=== PATIENT | male | born 1960 | race African-American/Black ===

== ENCOUNTER 2016-12-12 16:18 | Emergency (ER) | payer OTHER ==
[~2016-12-12] VITALS: Ht 177.8 cm; Wt 68.0 kg
[~2016-12-12 16:18] MED LIST: CYCL-36 PO; HYDRO.5%T TOP; IBUP800 PO; MICR12.5 PO; RANI150 PO
[2016-12-12 16:20] VITALS: BP 181/94; PULSE 64; RESP 15; TEMP 97.8; O2SAT 98
--- NOTE | 2016-12-12 16:26 | PD ---
Physical Exam Time Seen by Provider: 16:25 Narrative 56 y/o male presents for evaluation of 2 days duration lightheadedness/ dizziness. denies cp/sob. Vital signs reviewed. Seen at triage desk. Awaiting bed placement. Data Data Last Documented VS Vital Signs Date Time Temp Pulse Resp B/P Pulse Ox O2 Delivery O2 Flow Rate FiO2 12/12/16 16:20 97.8 64 15 181/94 98 MDM Medical Record Reviewed: Yes Supervised Visit with CATHY: Tyrese Monreal December 12, 2016 16:26
[2016-12-12 16:56] VITALS: BP 179/92; PULSE 59; RESP 16; O2SAT 100
[2016-12-12] MEDS ORDERED: SODIUM CHLORIDE 0.9% FLUSH 10 ML FLUSH IVF PRN (17:15)
[2016-12-12] MEDS ORDERED: SODIUM CHLOR 0.9% 1000 ML INJ 1,000 ML IV ONE (17:15)
[2016-12-12 17:22] VITALS: BP 179/92; PULSE 59; RESP 14; O2SAT 100
[2016-12-12 17:33] LABS: AUTOMATED NEUTROPHIL # 3.3 TH/MM3 (1.8-7.7); BASOPHIL % 0.6 % (0.0-2.0); EOSINOPHIL # 0.1 TH/MM3 (0-0.4); EOSINOPHIL % 1.1 % (0.0-4.0); HEMATOCRIT 36.2 % (39.0-51.0); HEMO FLAGS DIFF FINAL; LYMPH % 26.4 % (9.0-44.0); LYMPHOCYTE # 1.4 TH/MM3 (1.0-4.8); MEAN CELL VOLUME 87.8 FL (80.0-100.0); MEAN CORPUSCULAR HEMOGLOBIN 29.2 PG (27.0-34.0); MEAN CORPUSCULAR HGB CONC 33.3 % (32.0-36.0); MONO % 8.3 % (0.0-8.0); NEUT % 63.6 % (16.0-70.0); PLATELET COUNT 256 TH/MM3 (150-450); RED BLOOD COUNT 4.13 MIL/MM3 (4.50-5.90); RED CELL DISTRIBUTION WIDTH 14.4 % (11.6-17.2); WHITE BLOOD COUNT 5.2 TH/MM3 (4.0-11.0)
[2016-12-12 17:50] LABS: APTT (PATIENT) 29.9 SEC (24.3-30.1); PROTHROMBIN TIME - PATIENT 10.7 SEC (9.8-11.6)
--- NOTE | 2016-12-12 17:54 | PD ---
HPI Chief Complaint: Dizziness Time Seen by Provider: 17:24 Travel History International Travel<30 days: No Contact w/Intl Traveler<30days: No Traveled to known affect area: No History of Present Illness HPI 56-year-old male presents emergency department for evaluation of dizziness. Patient states been going on and off for the past 3 or 4 days. He states that initially started early in the morning and he states it is most severe when he first sits up in the morning. With only mild nausea and no vomiting. Patient is concerned because his 65-year-old brother was just diagnosed with stroke and wants to make sure he is not having the same. Patient denies any visual difficulties of focalized weakness. States his symptoms have been lasting only for a few minutes at a time. He is a smoker denies a history of heart problems has not had a checkup in some time. He states this happened to him one time in the past when he was told he had a sinus infection. Patient states currently asymptomatic. PFSH Past Medical History Arthritis: Yes Medical other: Yes (lupus) Social History Alcohol Use: Yes (occ) Tobacco Use: Yes Substance Use: Yes (marijuana) Allergies-Medications (Allergen,Severity, Reaction): Coded Allergies: Zithromax (Verified Allergy, Severe, ABD PAIN AND DIARRHEA, 12/12/16) Reported Meds & Prescriptions Reported Meds & Active Scripts Active Meclizine (Meclizine HCl) 25 Mg Chew 25 Mg CHEW DIRECTED PRN Review of Systems Except as stated in HPI: all other systems reviewed are Neg Physical Exam Narrative GENERAL: Well-developed well-nourished no apparent distress SKIN: Focused skin assessment warm/dry. HEAD: Atraumatic. Normocephalic. EYES: Pupils equal and round. No scleral icterus. No injection or drainage. PERRLA ENT: No nasal bleeding or discharge. Mucous membranes pink and moist. TMs clear bilaterally. NECK: Trachea midline. No JVD. CARDIOVASCULAR: Regular rate and rhythm. No murmur appreciated. RESPIRATORY: No accessory muscle use. Clear to auscultation. Breath sounds equal bilaterally. GASTROINTESTINAL: Abdomen soft, non-tender, nondistended. Hepatic and splenic margins not palpable. MUSCULOSKELETAL: No obvious deformities. There is some clubbing of the digits. No cyanosis. No edema. NEUROLOGICAL: Awake and alert. Cranial nerves II through XII are grossly intact and nonfocal, 5 out of 5 strength in all 4 extremities, cerebellar testing but no stinger and heel gilmore testing negative. Sensation intact and equal bilaterally. PSYCHIATRIC: Appropriate mood and affect; insight and judgment normal. Data Data Last Documented VS Vital Signs Date Time Temp Pulse Resp B/P Pulse Ox O2 Delivery O2 Flow Rate FiO2 12/12/16 17:22 59 14 179/92 100 Room Air 12/12/16 16:20 97.8 Orders Electrocardiogram (12/12/16 ) Ckmb (Isoenzyme) Profile (12/12/16 17:11) Complete Blood Count With Diff (12/12/16 17:11) Comprehensive Metabolic Panel (12/12/16 17:11) Magnesium (Mg) (12/12/16 17:11) Prothrombin Time / Inr (Pt) (12/12/16 17:11) Act Partial Throm Time (Ptt) (12/12/16 17:11) Troponin I (12/12/16 17:11) Chest, Single Ap (12/12/16 17:11) Ecg Monitoring (12/12/16 17:11) Bilateral Bp Monitoring (12/12/16 17:11) Iv Access Insert/Monitor (12/12/16 17:11) Oximetry (12/12/16 17:11) Oxygen Administration (12/12/16 17:11) Sodium Chloride 0.9% Flush (Ns Flush) (12/12/16 17:15) Sodium Chlor 0.9% 1000 Ml Inj (Ns 1000 M (12/12/16 17:15) Mri Brain W/O Contrast (12/12/16 ) CKMB (12/12/16 17:21) CKMB% (12/12/16 17:21) Labs Laboratory Tests Test 12/12/16 17:21 White Blood Count 5.2 TH/MM3 Red Blood Count 4.13 MIL/MM3 Hemoglobin 12.1 GM/DL Hematocrit 36.2 % Mean Corpuscular Volume 87.8 FL Mean Corpuscular Hemoglobin 29.2 PG Mean Corpuscular Hemoglobin 33.3 % Concent Red Cell Distribution Width 14.4 % Platelet Count 256 TH/MM3 Mean Platelet Volume 8.1 FL Neutrophils (%) (Auto) 63.6 % Lymphocytes (%) (Auto) 26.4 % Monocytes (%) (Auto) 8.3 % Eosinophils (%) (Auto) 1.1 % Basophils (%) (Auto) 0.6 % Neutrophils # (Auto) 3.3 TH/MM3 Lymphocytes # (Auto) 1.4 TH/MM3 Monocytes # (Auto) 0.4 TH/MM3 Eosinophils # (Auto) 0.1 TH/MM3 Basophils # (Auto) 0.0 TH/MM3 CBC Comment DIFF FINAL Differential Comment Prothrombin Time 10.7 SEC Prothromb Time International 1.0 RATIO Ratio Activated Partial 29.9 SEC Thromboplast Time Sodium Level 140 MEQ/L Potassium Level 3.9 MEQ/L Chloride Level 107 MEQ/L Carbon Dioxide Level 30.4 MEQ/L Anion Gap 3 MEQ/L Blood Urea Nitrogen 11 MG/DL Creatinine 1.19 MG/DL Estimat Glomerular Filtration 77 ML/MIN Rate Random Glucose 86 MG/DL Calcium Level 8.7 MG/DL Magnesium Level 2.0 MG/DL Total Bilirubin 0.3 MG/DL Aspartate Amino Transf 28 U/L (AST/SGOT) Alanine Aminotransferase 28 U/L (ALT/SGPT) Alkaline Phosphatase 81 U/L Total Creatine Kinase 368 U/L Creatine Kinase MB 6.5 NG/ML Creatine Kinase MB % 1.8 % Troponin I LESS THAN 0.02 NG/ML Total Protein 7.0 GM/DL Albumin 3.6 GM/DL [facility] Medical Decision Making Medical Screen Exam Complete: Yes Emergency Medical Condition: Yes Interpretation(s) EKG shows normal sinus rhythm with normal axis and normal R-wave progression. No concerning ST T changes. Prominent Q waves in V1 and V2 undetermined significance could be prior septal infarct. Borderline EKG. Differential Diagnosis Dehydration, rhabdomyolysis, vertigo, TIA seems unlikely. Narrative Course Patient is 56-year-old male smoker with a family history of stroke presents emergency department with on and off vertigo symptoms. The symptoms are more consistent with vertigo however given his risk factors will pursue an MRI. Last 24 hours Impressions Chest X-Ray 12/12/16 1711 Signed Impressions: Service Date/Time: Monday, December 12, 2016 17:44 - CONCLUSION: No acute disease. Jeffrey Swain MD Brain MRI 12/12/16 0000 Signed Impressions: Service Date/Time: Monday, December 12, 2016 18:14 - CONCLUSION: No acute intracranial findings Jeffrey Munguia MD His labs do show a minimal elevation in CK with creatinine 1.19. No chest pain symptoms. Overall the patient appears well. He was given normal saline in the emergency department. Discussed with them need for hydration working outside in the floor to keep. We'll prescribe Antivert and discussed need follow-up with a primary care physician. He will follow-up with his PCP by phone in the morning. Diagnosis Primary Impression: Dehydration Additional Impression: Vertigo Referrals: [facility] Additional Instructions: Recommend follow-up with her primary care physician or [facility] within a week for a checkup. Med/Other Pt SpecificInfo: Prescription(s) given Scripts Meclizine 25 Mg Chew25 Mg CHEW DIRECTED PRN (VERTIGO) #30 TAB Ref 0 Prov:Julian Paul MD 12/12/16 Disposition: 01 DISCHARGE HOME Condition: Stable Julian Paul MD December 12, 2016 17:54
[2016-12-12 17:56] LABS: ALT (GPT) 28 U/L (12-78); ANION GAP 3 MEQ/L (5-15); AST (GOT) 28 U/L (15-37); BICARBONATE 30.4 MEQ/L (21.0-32.0); BLOOD UREA NITROGEN 11 MG/DL (7-18); CHLORIDE 107 MEQ/L (98-107); GLOMERULAR FILTRATION RATE 77 ML/MIN (>89); POTASSIUM 3.9 MEQ/L (3.5-5.1); SODIUM (NA) 140 MEQ/L (136-145)
[2016-12-12 18:00] LABS: ALKALINE PHOSPHATASE 81 U/L (45-117); CREATINE KINASE 368 U/L (39-308); TOTAL BILIRUBIN ADULT 0.3 MG/DL (0.2-1.0)
[2016-12-12 18:12] LABS: CKMB 6.5 NG/ML (0.5-3.6)
--- NOTE | 2016-12-12 18:13 | RADRPT ---
EXAM DATE/TIME: 12/12/2016 17:44 [facility] COMPARISON: No previous studies available for comparison. INDICATIONS : Chest pain. MEDICAL HISTORY : None. SURGICAL HISTORY : None. ENCOUNTER: Initial ACUITY: 2 days PAIN SCORE: 6/10 LOCATION: Bilateral chest FINDINGS: A single view of the chest demonstrates the lungs to be symmetrically aerated without evidence of mas s, infiltrate or effusion. The cardiomediastinal contours are unremarkable. Osseous structures are intact. CONCLUSION: No acute disease. Jeffrey Swain MD on December 12, 2016 at 18:11 Board Certified Radiologist. This report was verified electronically.
--- NOTE | 2016-12-12 18:45 | RADRPT ---
EXAM DATE/TIME: 12/12/2016 18:14 [facility] COMPARISON: No previous studies available for comparison. INDICATIONS : TIA. MEDICAL HISTORY : None. SURGICAL HISTORY : None. ENCOUNTER: Subsequent ACUITY: 1 day PAIN SCORE: 3/10 LOCATION: cranial TECHNIQUE: Multiplanar, multisequence MRI of the brain was performed without contrast. FINDINGS: CEREBRUM: The ventricles are normal for age. No evidence of midline shift, mass lesion, hemorrhage or acute in farction. No extraaxial fluid collections are seen. The pituitary gland and suprasellar cistern are normal in configuration. WHITE MATTER: No significant signal abnormalities are seen in the white matter. POSTERIOR FOSSA: The cerebellum and brainstem are intact. The 4th ventricle is midline. The cerebellopontine angle is unremarkable. The cerebellar tonsils are normal in position. DIFFUSION IMAGING: No focal areas of restricted diffusion are seen. No evidence of acute infarction. EXTRACRANIAL: The visualized portions of the orbits and paranasal sinuses are unremarkable. There is moderate disea se in the left-sided mastoid sinuses. CONCLUSION: No acute intracranial findings Jeffrey Munguia MD on December 12, 2016 at 18:38 Board Certified Radiologist. This report was verified electronically.
[2016-12-12] MEDS ORDERED: MECL25CH CHEW (18:53)
--- NOTE | 2016-12-13 08:52 | EKG ---
Date Performed: 12/12/2016 Time Performed: 16:44:31 PTAGE: 56 years EKG: SINUS BRADYCARDIA SEPTAL MYOCARDIAL INFARCTION ABNORMAL ECG PREVIOUS TRACING : 10/08/2000 10.20 DOCTOR: Chaka Zurita Interpretating Date/Time 12/13/2016 08:50:28
[2016-12-21] MEDS ORDERED: HYDR12.57 PO (10:10)
== END 2016-12-12 19:09 | disposition home or self-care (01) ==
LOC: NEPD 16:18
DX: E86.0 Dehydration (principal); R94.31 Abnormal electrocardiogram [ECG] [EKG]; F12.90 Cannabis use, unspecified, uncomplicated; Z72.0 Tobacco use
CPT/HCPCS: 70551; 71010; 80053; 82550; 82552; 83735; 84484; 85025; 85610; 85730; 93005; 96360; 96361; 99284; J7030

== ENCOUNTER 2017-06-12 17:31 | Emergency (ER) | payer OTHER ==
[~2017-06-12] VITALS: Ht 177.8 cm; Wt 70.0 kg
[~2017-06-12 17:31] MED LIST changes: -CYCL-36 PO; +HYDR12.57 PO; -HYDRO.5%T TOP; -IBUP800 PO; +MECL25CH CHEW; -MICR12.5 PO; -RANI150 PO
[2017-06-12 17:33] VITALS: BP 169/92; PULSE 70; RESP 16; TEMP 97.7; O2SAT 97
--- NOTE | 2017-06-12 17:56 | PD ---
Physical Exam Date Seen by Provider: Jun 12, 2017 Time Seen by Provider: 17:53 Narrative 56-year-old black male presents to emergency Department with complaints of swelling and itching to the right side of his face as well as his right hand. He states that he was in his yard yesterday working and feels that he may have been bitten say something. He denies any fever or chills. No difficulty swallowing. Vital signs reviewed. Pt waiting for bed placement. Data Data Last Documented VS Vital Signs Date Time Temp Pulse Resp B/P (MAP) Pulse Ox O2 Delivery O2 Flow Rate FiO2 06/12/17 17:33 97.7 70 16 169/92 (117) 97 Room Air [facility] Medical Record Reviewed: No Supervised Visit with CATHY: Ehsan Solo Jun 12, 2017 17:56
[2017-06-12] MEDS ORDERED: PRED20 PO (20:30)
[2017-06-12] MEDS ORDERED: BACT800T5 PO (20:30)
--- NOTE | 2017-06-12 20:58 | PD ---
HPI Chief Complaint: Bite or Sting Time Seen by Provider: 20:24 Travel History International Travel<30 days: No Contact w/Intl Traveler<30days: No Traveled to known affect area: No History of Present Illness HPI This patient complains of some swelling and itching to his right hand. It started yesterday around 4 PM. Duration is 29 hours. He felt like he got bit by an insect but did not actually see something bite him. Swelling is quite localized to the dorsum of the right hand. He has no fever or drainage. PFSH Past Medical History Arthritis: Yes Autoimmune Disease: Yes (LUPUS) Diminished Hearing: No Tetanus Vaccination: < 5 Years Influenza Vaccination: No Past Surgical History Surgical History: No Previous Surgery Social History Alcohol Use: Yes (occ) Tobacco Use: Yes Substance Use: Yes (marijuana) Allergies-Medications (Allergen,Severity, Reaction): Coded Allergies: azithromycin (Unverified Allergy, Severe, ABD PAIN AND DIARRHEA, 06/12/17) Reported Meds & Prescriptions Reported Meds & Active Scripts Active Prednisone 20 Mg Tab 40 Mg PO DIRECTED 3 Days Bactrim DS (Sulfamethoxazole-Trimethoprim) 800-160 Mg Tab 1 Tab PO BID Hydrochlorothiazide 12.5 Mg Cap 12.5 Mg PO DAILY Meclizine (Meclizine HCl) 25 Mg Chew 25 Mg CHEW DIRECTED PRN Review of Systems General / Constitutional: No: Fever HENT: No: Headaches Cardiovascular: No: Chest Pain or Discomfort Physical Exam Narrative Psych: Normal mood and affect. Normal insight and judgment. Right hand: There is a very small area on the right hand between the second and third MCP joints that have some localized edema and erythema. It looks more urticarial than infectious I believe NECK: Symmetrical appearance, midline trachea. No mass or crepitus. Thyroid without enlargement, tenderness, or mass. Gen.: 56-year-old male well-developed well-nourished pleasant with no distress Data Data Last Documented VS Vital Signs Date Time Temp Pulse Resp B/P (MAP) Pulse Ox O2 Delivery O2 Flow Rate FiO2 06/12/17 17:33 97.7 70 16 169/92 (117) 97 Room Air MDM Medical Decision Making Medical Screen Exam Complete: Yes Emergency Medical Condition: Yes Medical Record Reviewed: Yes Differential Diagnosis Localized allergic reaction, cellulitis, abscess Narrative Course I have reviewed the patient's electronic medical record. I think the patient has a localized allergic reaction. I wrote him a few days of prednisone and he will use Benadryl as needed. I also just to cover infectious possibility wrote him a course of Bactrim although I think this is less likely infectious. Diagnosis Primary Impression: Allergic reaction Qualified Codes: T78.40XA - Allergy, unspecified, initial encounter Additional Instructions: The patient was advised to follow up with their physician and return if they worsen. Use Benadryl as needed and watch for sedation Med/Other Pt SpecificInfo: Prescription(s) given Scripts Prednisone (Prednisone) 20 Mg Tab 40 MG PO DIRECTED for 3 Days, TAB 0 Refills Prov: Robert Yin MD 06/12/17 Sulfamethoxazole-Trimethoprim (Bactrim DS) 800-160 Mg Tab 1 TAB PO BID for Infection, #14 TAB 0 Refills Prov: Robert Yin MD 06/12/17 Condition: Stable Robert Yin MD Jun 12, 2017 20:58
== END 2017-06-12 21:22 | disposition home or self-care (01) ==
LOC: NEPE 17:31
DX: T78.40XA Allergy, unspecified, initial encounter (principal); Z72.0 Tobacco use
CPT/HCPCS: 99284

== ENCOUNTER 2017-10-02 11:06 | Emergency (ER) | payer SELFPAY ==
[~2017-10-02] VITALS: Ht 177.8 cm; Wt 70.5 kg
[~2017-10-02 11:06] MED LIST changes: +BACT800T5 PO; +PRED20 PO
[2017-10-02 11:07] VITALS: BP 141/86; PULSE 94; RESP 18; TEMP 99.1; O2SAT 97
[2017-10-02] MEDS ORDERED: SODIUM CHLOR 0.9% 1000 ML INJ 1,000 ML IV SCH (11:26)
--- NOTE | 2017-10-02 11:28 | PD ---
HPI Chief Complaint: GI Complaint Time Seen by Provider: 11:15 Travel History International Travel<30 days: No Contact w/Intl Traveler<30days: No Traveled to known affect area: No History of Present Illness HPI 56-year-old male with PMH of lupus, GERD presents to the ED for evaluation of " 2 or 3" days history of swollen, erythematous, tender areas of bilateral upper extremities and right abdomen. Patient states that he thinks these are bug bites. He states that during the course of the day yesterday he was not feeling well. He endorses one episode of emesis. He denies fever, chills, close throat sensation, scratchy throat, shortness of breath, abdominal pain. He states that he has been staying at his mother's and "few friends." He denies family or friends with similar symptoms. Treated at home with a dose of ranitidine. PFSH Past Medical History Arthritis: Yes Autoimmune Disease: Yes (LUPUS) Diminished Hearing: No Hypertension: Yes Influenza Vaccination: No Past Surgical History Surgical History: No Previous Surgery Social History Alcohol Use: Yes Tobacco Use: Yes Substance Use: Yes (marijuana) Allergies-Medications (Allergen,Severity, Reaction): Coded Allergies: azithromycin (Unverified Allergy, Severe, ABD PAIN AND DIARRHEA, 10/02/17) Reported Meds & Prescriptions Reported Meds & Active Scripts Active Benadryl Itch Stopping Topical (Diphenhydramine Topical) 2 % Gel 1 Applic TOPICAL Q4-6H PRN 5 Days Keflex (Cephalexin) 500 Mg Cap 500 Mg PO Q6H 7 Days Bactrim DS (Sulfamethoxazole-Trimethoprim) 800-160 Mg Tab 1 Tab PO BID Review of Systems Except as stated in HPI: all other systems reviewed are Neg Physical Exam Narrative GENERAL: Well-nourished, well-developed nontoxic appearing male in no acute distress. SKIN: Focused skin assessment warm/dry. Multiple erythematous, edematous, well- circumscribed, blanching areas with central punctum of the bilateral upper extremities and abdomen. The left bicep is suspicious for the breakfast, lunch and dinner pattern of bedbugs. The left elbow shows a similar pattern, but the area of erythema is warm. HEAD: Normocephalic. EYES: No scleral icterus. No injection or drainage. ENT: Oropharynx without erythema, edema or exudate. Uvula midline. Airway patent. Floor of mouth is soft. NECK: Supple, trachea midline. No JVD or lymphadenopathy. CARDIOVASCULAR: Regular rate and rhythm without murmurs, gallops, or rubs. RESPIRATORY: Breath sounds clear and equal bilaterally. No accessory muscle use. GASTROINTESTINAL: Abdomen soft, non-tender, nondistended. MUSCULOSKELETAL: No cyanosis, or edema. BACK: Nontender without obvious deformity. No CVA tenderness. Data Data Last Documented VS Vital Signs Date Time Temp Pulse Resp B/P (MAP) Pulse Ox O2 Delivery O2 Flow Rate FiO2 10/02/17 11:39 70 17 136/73 (94) 100 Room Air 10/02/17 11:07 99.1 Orders Orders Complete Blood Count With Diff (10/02/17 11:26) Comprehensive Metabolic Panel (10/02/17 11:26) Ecg Monitoring (10/02/17 11:26) Iv Access Insert/Monitor (10/02/17 11:26) Oximetry (10/02/17 11:26) Diphenhydramine Inj (Benadryl Inj) (10/02/17 11:30) Methylprednisolone So Succ Inj (Solumedr (10/02/17 11:30) Famotidine Inj (Pepcid Inj) (10/02/17 11:30) Sodium Chlor 0.9% 1000 Ml Inj (Ns 1000 M (10/02/17 11:26) Sodium Chloride 0.9% Flush (Ns Flush) (10/02/17 11:30) Ed Discharge Order (10/02/17 12:20) Labs Laboratory Tests Test 10/02/17 11:20 White Blood Count 6.7 TH/MM3 Red Blood Count 4.40 MIL/MM3 Hemoglobin 12.7 GM/DL Hematocrit 37.0 % Mean Corpuscular Volume 84.0 FL Mean Corpuscular Hemoglobin 28.9 PG Mean Corpuscular Hemoglobin Concent 34.4 % Red Cell Distribution Width 13.8 % Platelet Count 349 TH/MM3 Mean Platelet Volume 8.3 FL Neutrophils (%) (Auto) 66.6 % Lymphocytes (%) (Auto) 21.4 % Monocytes (%) (Auto) 7.3 % Eosinophils (%) (Auto) 4.3 % Basophils (%) (Auto) 0.4 % Neutrophils # (Auto) 4.5 TH/MM3 Lymphocytes # (Auto) 1.4 TH/MM3 Monocytes # (Auto) 0.5 TH/MM3 Eosinophils # (Auto) 0.3 TH/MM3 Basophils # (Auto) 0.0 TH/MM3 CBC Comment DIFF FINAL Differential Comment Blood Urea Nitrogen 13 MG/DL Creatinine 1.08 MG/DL Random Glucose 100 MG/DL Total Protein 7.6 GM/DL Albumin 3.3 GM/DL Calcium Level 8.7 MG/DL Alkaline Phosphatase 87 U/L Aspartate Amino Transf (AST/SGOT) 18 U/L Alanine Aminotransferase (ALT/SGPT) 19 U/L Total Bilirubin 0.6 MG/DL Sodium Level 138 MEQ/L Potassium Level 3.9 MEQ/L Chloride Level 104 MEQ/L Carbon Dioxide Level 28.2 MEQ/L Anion Gap 6 MEQ/L Estimat Glomerular Filtration Rate 86 ML/MIN [facility] Medical Decision Making Medical Screen Exam Complete: Yes Emergency Medical Condition: Yes Differential Diagnosis insect bite versus allergic reaction versus cellulitis versus other Narrative Course 56-year-old male with PMH of lupus, GERD presents to the ED for evaluation of " 2 or 3" days history of swollen, erythematous, tender areas of bilateral upper extremities and right abdomen. Patient states that he thinks these are bug bites. Endorses one episode of emesis yesterday. Denies nausea on presentation. Physical exam suspicious for bedbugs with possible secondary infection over the left elbow. ENT exam is completely unremarkable. Rest sounds are clear and equal bilaterally. IV was established. Patient was administered 1 L normal saline, 125 prednisone, famotidine and Benadryl IV. On recheck the patient states that his itching has improved. No significant improvement in his bug bites. He is prescribed Bactrim and Keflex along with Benadryl topical. He is instructed to isolate from the source of the bites, take medications as prescribed, return for worsening symptoms. He indicated understanding of the discharge instructions. He is stable and discharged home. Diagnosis Primary Impression: Allergic reaction to insect sting Qualified Codes: T63.481A - Toxic effect of venom of other arthropod, accidental (unintentional), initial encounter Additional Impression: Cellulitis Qualified Codes: L03.114 - Cellulitis of left upper limb Referrals: Primary Care Physician Patient Instructions: Cellulitis (ED), General Instructions, Insect Bite or Sting (ED) Additional Instructions: Rest, hydrate. Resume at home medications as previously prescribed. Take Bactrim and Keflex as prescribed. Applied topical Benadryl to areas of itching and redness 3-4 times per day. Cool showers to avoid worsening of the itch. Follow-up with the primary care provider. Isolate from the source of the bites as possible. Return to the ED for any urgent or emergent medical condition. Med/Other Pt SpecificInfo: Prescription(s) given Scripts Diphenhydramine Topical (Benadryl Itch Stopping Topical) 2 % Gel 1 APPLIC TOPICAL Q4-6H Y for ITCHING AND/OR RASH for 5 Days, #1 TUBE 0 Refills Prov: Lori Lima MD 10/02/17 Cephalexin (Keflex) 500 Mg Cap 500 MG PO Q6H for Infection for 7 Days, #28 CAP 0 Refills Prov: Lori Lima MD 10/02/17 Sulfamethoxazole-Trimethoprim (Bactrim DS) 800-160 Mg Tab 1 TAB PO BID for Infection, #14 TAB 0 Refills Prov: Lori Lima MD 10/02/17 Disposition: 01 DISCHARGE HOME Condition: Stable Justyna Villa Oct 02, 2017 11:28
[2017-10-02] MEDS ORDERED: diphenhydrAMINE HCL 50 MG/ML VIAL IVP ONE (11:30)
[2017-10-02] MEDS ORDERED: SODIUM CHLORIDE 0.9% FLUSH 10 ML FLUSH IV FLUSH PRN (11:30)
[2017-10-02] MEDS ORDERED: methylPREDNISolone SOD SUCC 125 MG/2 ML VIAL IV PUSH ONE (11:30)
[2017-10-02] MEDS ORDERED: FAMOTIDINE 20 MG/2 ML VIAL IV PUSH ONE (11:30)
[2017-10-02 11:39] VITALS: BP 136/73; PULSE 70; RESP 17; O2SAT 100
[2017-10-02 11:47] LABS: AUTOMATED NEUTROPHIL # 4.5 TH/MM3 (1.8-7.7); BASOPHIL % 0.4 % (0.0-2.0); EOSINOPHIL # 0.3 TH/MM3 (0-0.4); EOSINOPHIL % 4.3 % (0.0-4.0); HEMOGLOBIN 12.7 GM/DL (13.0-17.0); LYMPH % 21.4 % (9.0-44.0); LYMPHOCYTE # 1.4 TH/MM3 (1.0-4.8); MEAN CORPUSCULAR HEMOGLOBIN 28.9 PG (27.0-34.0); MEAN CORPUSCULAR HGB CONC 34.4 % (32.0-36.0); MEAN PLATELET VOLUME 8.3 FL (7.0-11.0); MONO % 7.3 % (0.0-8.0); MONOCYTE # 0.5 TH/MM3 (0-0.9); NEUT % 66.6 % (16.0-70.0); PLATELET COUNT 349 TH/MM3 (150-450); RED CELL DISTRIBUTION WIDTH 13.8 % (11.6-17.2); WHITE BLOOD COUNT 6.7 TH/MM3 (4.0-11.0)
[2017-10-02 12:06] LABS: ALBUMIN 3.3 GM/DL (3.4-5.0); ALT (GPT) 19 U/L (12-78); AST (GOT) 18 U/L (15-37); BICARBONATE 28.2 MEQ/L (21.0-32.0); BLOOD UREA NITROGEN 13 MG/DL (7-18); CALCIUM 8.7 MG/DL (8.5-10.1); CHLORIDE 104 MEQ/L (98-107); CREATININE 1.08 MG/DL (0.60-1.30); GLOMERULAR FILTRATION RATE 86 ML/MIN (>89); GLUCOSE,RANDOM 100 MG/DL (74-106); SODIUM (NA) 138 MEQ/L (136-145)
[2017-10-02 12:08] LABS: ALKALINE PHOSPHATASE 87 U/L (45-117); TOTAL BILIRUBIN ADULT 0.6 MG/DL (0.2-1.0); TOTAL PROTEIN 7.6 GM/DL (6.4-8.2)
[2017-10-02] MEDS ORDERED: CEPH-460 PO (12:20)
[2017-10-02] MEDS ORDERED: DIPH1GEL TOPICAL (12:20)
[2017-10-02] MEDS ORDERED: BACT800T5 PO (12:20)
== END 2017-10-02 12:48 | disposition home or self-care (01) ==
LOC: NEPE 11:06
DX: T63.481A Toxic effect of venom of other arthropod, accidental (unintentional), initial encounter (principal); L03.114 Cellulitis of left upper limb; F12.90 Cannabis use, unspecified, uncomplicated; Z72.0 Tobacco use
CPT/HCPCS: 80053; 85025; 96374; 96375; 99284; J1200; J2930; J7030

== ENCOUNTER 2017-11-10 09:05 | Emergency (ER) | payer SELFPAY ==
[~2017-11-10] VITALS: Ht 172.7 cm; Wt 68.0 kg
[~2017-11-10 09:05] MED LIST changes: +CEPH-460 PO; +DIPH1GEL TOPICAL; -HYDR12.57 PO; -MECL25CH CHEW; -PRED20 PO
[2017-11-10 09:08] VITALS: BP 94/53; PULSE 72; RESP 16; TEMP 97.6; O2SAT 98
[2017-11-10 09:21] VITALS: BP 112/59; PULSE 58; RESP 18; O2SAT 98
[2017-11-10] MEDS ORDERED: SODIUM CHLOR 0.9% 1000 ML INJ 1,000 ML IV ONE (10:00)
[2017-11-10 10:29] LABS: AUTOMATED NEUTROPHIL # 3.1 TH/MM3 (1.8-7.7); BASOPHIL % 0.7 % (0.0-2.0); EOSINOPHIL % 0.1 % (0.0-4.0); HEMATOCRIT 36.7 % (39.0-51.0); HEMOGLOBIN 12.6 GM/DL (13.0-17.0); LYMPH % 25.3 % (9.0-44.0); LYMPHOCYTE # 1.1 TH/MM3 (1.0-4.8); MEAN CORPUSCULAR HGB CONC 34.2 % (32.0-36.0); MEAN PLATELET VOLUME 8.1 FL (7.0-11.0); MONO % 5.4 % (0.0-8.0); MONOCYTE # 0.2 TH/MM3 (0-0.9); NEUT % 68.5 % (16.0-70.0); PLATELET COUNT 239 TH/MM3 (150-450); RED BLOOD COUNT 4.48 MIL/MM3 (4.50-5.90); RED CELL DISTRIBUTION WIDTH 14.1 % (11.6-17.2); WHITE BLOOD COUNT 4.5 TH/MM3 (4.0-11.0)
[2017-11-10] MEDS ORDERED: ONDANSETRON HCL 4 MG/2 ML VIAL IV PUSH ONE (10:30)
[2017-11-10 10:55] LABS: ALBUMIN 3.4 GM/DL (3.4-5.0); ALT (GPT) 24 U/L (12-78); AST (GOT) 30 U/L (15-37); BICARBONATE 26.2 MEQ/L (21.0-32.0); BLOOD UREA NITROGEN 14 MG/DL (7-18); CALCIUM 8.7 MG/DL (8.5-10.1); CHLORIDE 101 MEQ/L (98-107); CREATININE 1.34 MG/DL (0.60-1.30); GLOMERULAR FILTRATION RATE 67 ML/MIN (>89); GLUCOSE,RANDOM 97 MG/DL (74-106); SODIUM (NA) 136 MEQ/L (136-145)
[2017-11-10 10:59] LABS: ALKALINE PHOSPHATASE 77 U/L (45-117); TOTAL BILIRUBIN ADULT 0.3 MG/DL (0.2-1.0); TOTAL PROTEIN 7.7 GM/DL (6.4-8.2); TROPONIN I LESS THAN 0.02 NG/ML (0.02-0.05)
--- NOTE | 2017-11-10 12:12 | PD ---
HPI . Syncope Chief Complaint: Syncope/Near-Syncope Time Seen by Provider: 09:41 Travel History International Travel<30 days: No Contact w/Intl Traveler<30days: No Traveled to known affect area: No History of Present Illness HPI The consisting of congestion, cough, fever, mild diarrhea. He has been treating himself at home with Tylenol and Mucinex. Today, he tried to do some yard work and became weak and dizzy and then fainted. He denies any chest pain or shortness of breath. Did not have any palpitations. He states that he still feels weak. He states that he was able to lower himself to the ground and did not suffer any injuries. PFSH Past Medical History Arthritis: Yes (RA, Lupus) Autoimmune Disease: Yes (LUPUS) Diminished Hearing: No Hypertension: Yes Influenza Vaccination: No ?: Not Social History Alcohol Use: Yes (quit in august, previous "heavy drinker") Tobacco Use: Yes Substance Use: Yes (marijuana daily) Allergies-Medications (Allergen,Severity, Reaction): Coded Allergies: azithromycin (Unverified Allergy, Severe, ABD PAIN AND DIARRHEA, 10/02/17) Reported Meds & Prescriptions Reported Meds & Active Scripts Active Benadryl Itch Stopping Topical (Diphenhydramine Topical) 2 % Gel 1 Applic TOPICAL Q4-6H PRN 5 Days Keflex (Cephalexin) 500 Mg Cap 500 Mg PO Q6H 7 Days Bactrim DS (Sulfamethoxazole-Trimethoprim) 800-160 Mg Tab 1 Tab PO BID Review of Systems Except as stated in HPI: all other systems reviewed are Neg General / Constitutional: Positive: Fever, Chills HENT: Positive: Congestion Cardiovascular: No: Chest Pain or Discomfort Respiratory: Positive: Cough, No: Shortness of Breath Gastrointestinal: Positive: Diarrhea Physical Exam Narrative GENERAL: Awake and alert and fully oriented. SKIN: warm/dry. Normal color and turgor. HEAD: Normocephalic. Atraumatic. EYES: Pupils equal and round. No scleral icterus. No injection or drainage. ENT: No nasal bleeding or discharge. Mucous membranes slightly dry. NECK: Trachea midline. Full range of motion without pain.. CARDIOVASCULAR: Regular rate and rhythm. Heart sounds are normal. RESPIRATORY: No accessory muscle use. Clear to auscultation. Breath sounds equal bilaterally. GASTROINTESTINAL: Abdomen soft. Nontender. Bowel sounds present. Nondistended. MUSCULOSKELETAL: No obvious deformities. NEUROLOGICAL: Awake and alert. No obvious cranial nerve deficits. Motor grossly within normal limits. Normal speech. PSYCHIATRIC: Appropriate mood and affect; insight and judgment normal. Data Data Last Documented VS Vital Signs Date Time Temp Pulse Resp B/P (MAP) Pulse Ox O2 Delivery O2 Flow Rate FiO2 11/10/17 09:21 58 18 112/59 (76) 98 Room Air 11/10/17 09:08 97.6 Orders Orders Electrocardiogram (11/10/17 ) Complete Blood Count With Diff (11/10/17 09:55) Comprehensive Metabolic Panel (11/10/17 09:55) Iv Access Insert/Monitor (11/10/17 09:55) Troponin I (11/10/17 09:55) Ecg Monitoring (11/10/17 09:55) Sodium Chlor 0.9% 1000 Ml Inj (Ns 1000 M (11/10/17 10:00) Ondansetron Inj (Zofran Inj) (11/10/17 10:30) Labs Laboratory Tests Test 11/10/17 10:18 White Blood Count 4.5 TH/MM3 Red Blood Count 4.48 MIL/MM3 Hemoglobin 12.6 GM/DL Hematocrit 36.7 % Mean Corpuscular Volume 82.0 FL Mean Corpuscular Hemoglobin 28.0 PG Mean Corpuscular Hemoglobin Concent 34.2 % Red Cell Distribution Width 14.1 % Platelet Count 239 TH/MM3 Mean Platelet Volume 8.1 FL Neutrophils (%) (Auto) 68.5 % Lymphocytes (%) (Auto) 25.3 % Monocytes (%) (Auto) 5.4 % Eosinophils (%) (Auto) 0.1 % Basophils (%) (Auto) 0.7 % Neutrophils # (Auto) 3.1 TH/MM3 Lymphocytes # (Auto) 1.1 TH/MM3 Monocytes # (Auto) 0.2 TH/MM3 Eosinophils # (Auto) 0.0 TH/MM3 Basophils # (Auto) 0.0 TH/MM3 CBC Comment DIFF FINAL Differential Comment Blood Urea Nitrogen 14 MG/DL Creatinine 1.34 MG/DL Random Glucose 97 MG/DL Total Protein 7.7 GM/DL Albumin 3.4 GM/DL Calcium Level 8.7 MG/DL Alkaline Phosphatase 77 U/L Aspartate Amino Transf (AST/SGOT) 30 U/L Alanine Aminotransferase (ALT/SGPT) 24 U/L Total Bilirubin 0.3 MG/DL Sodium Level 136 MEQ/L Potassium Level 3.7 MEQ/L Chloride Level 101 MEQ/L Carbon Dioxide Level 26.2 MEQ/L Anion Gap 9 MEQ/L Estimat Glomerular Filtration Rate 67 ML/MIN Troponin I LESS THAN 0.02 NG/ML MDM Medical Decision Making Medical Screen Exam Complete: Yes Emergency Medical Condition: Yes Interpretation(s) EKG shows a normal sinus rhythm with some left ventricular hypertrophy Differential Diagnosis My differential diagnosis of syncope includes but is not limited to cardiac arrhythmia, hypovolemia, anemia, neurological catastrophe, vasovagal response Narrative Course This patient presents status post a syncopal event at home which occurred after a weeklong history of a viral illness. He was doing yard work when he had the syncopal event. The syncopal event was preceded by feeling weak and dizzy and lightheaded. CBC & BMP Diagram 11/10/17 10:18 Total Protein 7.7, Albumin 3.4, Calcium Level 8.7, Alkaline Phosphatase 77, Aspartate Amino Transf (AST/SGOT) 30, Alanine Aminotransferase (ALT/SGPT) 24, Total Bilirubin 0.3 Troponin less than 0.02. The patient has been treated here with IV fluids. He was complaining with some nausea so he was also given Zofran. He states that he is feeling better. This patient presents following a syncopal event at home. The most likely cause of his syncope is dehydration secondary to his antecedent viral illness this past week. He will be discharged home. Diagnosis Primary Impression: Syncope Qualified Codes: R55 - Syncope and collapse Additional Impression: Viral syndrome Patient Instructions: General Instructions, Syncope (DC), Viral Syndrome (DC) Disposition: 01 DISCHARGE HOME Condition: Stable Lita Hillman MD Nov 10, 2017 12:12
[2017-11-10 12:31] VITALS: BP 141/60; PULSE 60; RESP 18; O2SAT 98
--- NOTE | 2017-11-11 12:25 | EKG ---
Date Performed: 11/10/2017 Time Performed: 09:32:56 PTAGE: 57 years EKG: SINUS BRADYCARDIA Normal EKG Since PREVIOUS TRACING , no significant change noted PREVIOUS TRACIN12/12/2016 [id number] DOCTOR: Darnell Monterroso Interpretating Date/Time 11/11/2017 12:22:51
== END 2017-11-10 12:23 | disposition home or self-care (01) ==
LOC: NEPC 09:05
DX: R55 Syncope and collapse (principal); B34.9 Viral infection, unspecified; M32.9 Systemic lupus erythematosus, unspecified; M06.9 Rheumatoid arthritis, unspecified; I10 Essential (primary) hypertension; Z72.0 Tobacco use; F12.90 Cannabis use, unspecified, uncomplicated
CPT/HCPCS: 80053; 84484; 85025; 93005; 96374; 99284; J2405; J7030